=== PATIENT | female | born 1955 | race Caucasian/White ===

== ENCOUNTER 2018-05-26 17:02 | Emergency (ER) | payer BC ==
[2018-05-26 17:12] VITALS: BP 130/69
--- NOTE | 2018-05-26 17:24 | UC ---
Complaint Female HPI - HPI Summary HPI Summary: patient has had dysuria, increased frequency and hematuria. she denies any pain , fever, back aches - History Of Current Complaint Chief Complaint: UCGU Stated Complaint: URINARY COMPLAINT Time Seen by Provider: 05/26/18 17:14 Hx Obtained From: Patient ?: No Onset/Duration: Sudden Onset, Lasting Days Severity Initially: Mild Severity Currently: None Pain Intensity: 0 Aggravating Factor(s): Urination - Allergies/Home Medications Allergies/Adverse Reactions: Allergies Allergy/AdvReac Type Severity Reaction Status Date / Time Penicillins Allergy Unknown Verified 05/26/18 17:13 Reaction Details Home Medications: Home Medications Carboxymethylcellulose Sodium [Thera Tears] 1 each OP DAILY 05/26/18 [History Confirmed 05/26/18] Multivitamin [Multivitamins] 1 cap PO DAILY 05/26/18 [History Confirmed 05/26/18 ] Rosuvastatin Calcium 10 mg PO DAILY 05/26/18 [History Confirmed 05/26/18] PMH/Surg Hx/FS Hx/Imm Hx Previously Healthy: Yes - Surgical History Surgical History: None - Social History Alcohol Use: Rare Substance Use Type: None Smoking Status (MU): Never Smoked Tobacco Review of Systems All Other Systems Reviewed And Are Negative: Yes Constitutional: Positive: Negative Skin: Positive: Negative Eyes: Positive: Negative ENT: Positive: Negative Respiratory: Positive: Negative Cardiovascular: Positive: Negative Gastrointestinal: Positive: Negative Genitourinary: Positive: Hematuria, Frequency Motor: Positive: Negative Neurovascular: Positive: Negative Musculoskeletal: Positive: Negative Neurological: Positive: Negative Psychological: Positive: Negative Is Patient Immunocompromised?: No Physical Exam Triage Information Reviewed: Yes Appearance: Well-Appearing, No Pain Distress, Well-Nourished Vital Signs: Initial Vital Signs Temp 98.1 F 05/26/18 17:08 Pulse 70 05/26/18 17:08 Resp 16 05/26/18 17:08 BP 130/69 05/26/18 17:08 Pulse Ox 100 05/26/18 17:08 Vital Signs Reviewed: Yes Eye Exam: Normal ENT Exam: Normal Dental Exam: Normal Neck exam: Normal Neck: Positive: Supple, Nontender, No Lymphadenopathy Respiratory Exam: Normal Respiratory: Positive: Chest non-tender, Lungs clear, Normal breath sounds Cardiovascular Exam: Normal Cardiovascular: Positive: RRR, No Murmur, Pulses Normal Abdomen Description: Positive: Nontender, No Organomegaly, Soft, CVA Tenderness (R) - neg, CVA Tenderness (L) - neg Musculoskeletal Exam: Normal Neurological Exam: Normal Psychological Exam: Normal Skin Exam: Normal Complaint Female Dx - Course Course Of Treatment: hx obtained, exam performed ,meds reviewed, UA and urine culture was sent, advised follow up with her urologist Dr Benites. - Differential Dx/Diagnosis Differential Diagnosis/HQI/PQRI: Renal Colic, Urinary Tract Infection, Other - glomular nephritis Provider Diagnosis: Hematuria, gross Discharge - Sign-Out/Discharge Documenting (check all that apply): Patient Departure All imaging exams completed and their final reports reviewed: No Studies - Discharge Plan Condition: Stable Disposition: HOME Patient Education Materials: Hematuria (ED) Referrals: Bethanie Prince MD [Primary Care Provider] - Atilio Benites MD [Medical Doctor] - Additional Instructions: 1. increase fluid intake and rest 2. We have sent the urine to be cultured. 3 Follow up with the urologist as this is the second episode in the past few months. 4. if you develop any severe back pain or abdominal pain follow up in ER> - Billing Disposition and Condition Condition: STABLE Disposition: Home
== END 2018-05-26 17:50 | disposition home or self-care (01) ==
LOC: UCEAST 17:02
DX: R31.0 Gross hematuria (principal); R30.0 Dysuria; R35.0 Frequency of micturition; Z88.0 Allergy status to penicillin
CPT/HCPCS: 81003; 87086; 99201; G0463

== ENCOUNTER 2018-06-25 07:09 | Emergency (ER) | payer BC ==
[2018-06-25 08:25] LABS: Urine Appearance Clear; Urine Bacteria Absent (Absent); Urine Bilirubin Negative (Negative); Urine Blood 2+ (Negative); Urine Color Yellow; Urine Glucose Negative (Negative); Urine Ketones Negative (Negative); Urine Nitrite Negative (Negative); Urine Protein Negative (Negative); Urine Red Blood Cell 2+(6-10/hpf) (Absent); Urine Specific Gravity 1.013 (1.010-1.030); Urine Squamous Epithelial Cell Present (Absent); Urine Urobilinogen Negative (Negative); Urine White Blood Cell 2+(11-20/hpf) (Absent)
--- NOTE | 2018-06-25 08:59 | ED ---
GI/ HPI - HPI Summary HPI Summary: Patient is a 62-year-old female is with a recent history of gross hematuria presenting to the ED with symptoms of intermittent right flank pain and right suprapubic pain. She states this has been occurring since this morning, however on arrival to the ED, she states she is asymptomatic at this time. She was concerned as she had recently had a cystoscopy and an ultrasound of the kidneys. She endorses kidney stents to the left flank, however he sense of the right flank. she denies any fevers, sweats, chills but she denies any aleyda blood in the urine this morning. she endorses frequency, but denies any urgency. she does have a follow-up to dr. benites, urology tomorrow morning. she states she was concerned as she had had right flank pain and has never had this in the past. she denies any other symptoms at this time. - History of Current Complaint Chief Complaint: EDUrogenitalProblems Time Seen by Provider: 06/25/18 07:21 Stated Complaint: BLOOD IN URINE,CANT STOP URINATING/ABD PAIN PER PT Hx Obtained From: Patient Onset/Duration: Started Hours Ago Timing: Constant Severity: Mild Current Severity: None Pain Intensity: 3 Location of Pain: Flank - right Pain Characteristics: Aching Associated Signs and Symptoms: Positive: Negative, Flank Pain - right, UTI Symptoms. Negative: Hematemesis, Back Pain, Pallor, Dizziness Aggravating Factor(s): Nothing Alleviating Factor(s): Nothing - Allergy/Home Medications Allergies/Adverse Reactions: Allergies Allergy/AdvReac Type Severity Reaction Status Date / Time Penicillins Allergy Unknown Verified 06/25/18 07:14 Reaction Details PMH/Surg Hx/FS Hx/Imm Hx Previously Healthy: Yes - Cancer History Hx Chemotherapy: No Hx Radiation Therapy: No - Immunization History Hx Pertussis Vaccination: No Immunizations Up to Date: Yes Infectious Disease History: No Infectious Disease History: Reports: Hx Shingles - 2018 Denies: Traveled Outside the [place] in Last 30 Days - Social History Occupation: Employed Full-time Lives: With Family Alcohol Use: Rare Hx Substance Use: No Substance Use Type: Reports: None Hx Tobacco Use: No Smoking Status (MU): Never Smoked Tobacco Review of Systems Negative: Fever, Chills, Fatigue, Skin Diaphoresis Negative: Palpitations, Chest Pain Negative: Shortness Of Breath, Cough Gastrointestinal: Negative Negative: Abdominal Pain, Vomiting, Diarrhea, Nausea Positive: see HPI Negative: Arthralgia, Myalgia Neurological: Negative All Other Systems Reviewed And Are Negative: Yes Physical Exam Triage Information Reviewed: Yes Vital Signs On Initial Exam: Initial Vitals Temp Pulse Resp BP Pulse Ox 98.7 F 76 16 155/87 97 06/25/18 07:11 06/25/18 07:11 06/25/18 07:11 06/25/18 07:11 06/25/18 07:11 Vital Signs Reviewed: Yes Appearance: Positive: Well-Appearing, Well-Nourished Skin: Positive: Warm, Skin Color Reflects Adequate Perfusion Head/Face: Positive: Normal Head/Face Inspection Eyes: Positive: EOMI, ALONZO, Conjunctiva Clear Neck: Positive: Supple, No Lymphadenopathy Respiratory/Lung Sounds: Positive: Clear to Auscultation, Breath Sounds Present Cardiovascular: Positive: RRR, Pulses are Symmetrical in both Upper and Lower Extremities Abdomen Description: Positive: Other: - none at this time on exam Musculoskeletal: Positive: Normal, Strength/ROM Intact Neurological: Positive: Sensory/Motor Intact, Alert, Oriented to Person Place, Time Psychiatric: Positive: Normal, Affect/Mood Appropriate Diagnostics - Vital Signs Vital Signs Temp Pulse Resp BP Pulse Ox 06/25/18 07:11 98.7 F 76 16 155/87 97 - Laboratory Lab Results: Lab Results 06/25/18 Range/Units 07:55 Urine Color Yellow Urine Appearance Clear Urine pH 5.0 (5-9) Ur Specific [place] 1.013 (1.010-1.030) Urine Protein Negative (Negative) Urine Ketones Negative (Negative) Urine Blood 2+ A (Negative) Urine Nitrate Negative (Negative) Urine Bilirubin Negative (Negative) Urine Urobilinogen Negative (Negative) Ur Leukocyte Esterase Trace A (Negative) Urine WBC (Auto) 2+(11-20/hpf) A (Absent) Urine RBC (Auto) 2+(6-10/hpf) A (Absent) Ur Squamous Epith Cells Present A (Absent) Urine Bacteria Absent (Absent) Urine Glucose Negative (Negative) Lab Statement: Any lab studies that have been ordered have been reviewed, and results considered in the medical decision making process. GIGU Course/Dx - Course Course Of Treatment: During the course of treatment, the patient's evaluated for intermittent right flank pain and suprapubic tenderness with urinary frequency since having a cystoscopy. She states the worsening symptoms with this morning, and included the right flank pain for the first time. She has never had this in the past. She denies any history of UTI. She states she is otherwise healthy. She has a follow-up with Dr. Benites tomorrow. She states she has had kidney stones to the left flank, but recently had a ultrasound to the right flank with no evidence of kidney stones. UA obtained which shows 2+ blood and 2+ PVCs with trace leukocytes. This is positive for UTI. She will be treated for UTI with Bactrim twice daily 5 days. She will follow-up with Dr. Benites in the morning. I have opted not to complete a CT scan at this time as there was no evidence of kidney stones to the right flank which would be cause for concern of obstruction. Also patient is currently asymptomatic. She is afebrile. Vital signs are stable. - Diagnoses Differential Diagnoses - Female: Other - Right flank pain, UTI, bladder spasms, hematuria Provider Diagnoses: UTI (urinary tract infection) Discharge - Sign-Out/Discharge Documenting (check all that apply): Patient Departure Patient Received Moderate/Deep Sedation with Procedure: No - Discharge Plan Condition: Stable Disposition: HOME Prescriptions: Sulfamethox/Trimethoprim DS* [Bactrim DS 800/160 TAB*] 1 tab PO BID #10 tab MDD 2 Patient Education Materials: Urinary Tract Infection in Women (ED) Referrals: Bethanie Prince MD [Primary Care Provider] - Additional Instructions: As discussed, we will place him on an antibiotic at this time, however table any other treatments as you have an appointment tomorrow with Dr. Benites If he develop any worsening symptoms to the right flank or experiencing any urinary symptoms, return to the ED immediately Take the Bactrim twice daily 5 days or until we call you or Dr. Benites changes these medications. - Billing Disposition and Condition Condition: STABLE Disposition: Home
[2018-06-25 09:29] VITALS: BP 145/66
== END 2018-06-25 09:00 | disposition home or self-care (01) ==
LOC: ED 07:09
DX: N39.0 Urinary tract infection, site not specified (principal); Z88.0 Allergy status to penicillin
CPT/HCPCS: 81003; 81015; 87086; 99281

== ENCOUNTER → 2018-06-29 07:29 | Day surgery (SDC) | payer BC ==
--- NOTE | 2018-06-26 20:43 | HP ---
CC: Dr. Prince * HISTORY AND PHYSICAL: DATE OF PLANNED ADMISSION AND SURGERY: 06/29/18 HISTORY OF PRESENT ILLNESS: Mrs. Zapata is a 62-year-old white female who is admitted with a distal right ureteral calculus for cystoscopy, right ureteroscopy, laser lithotripsy and right ureteral stent insertion. Mrs. Zapata's symptoms started about 2-1/2 months ago when she presented to the emergency room at [facility] [place] with recurrent episodes of gross hematuria associated with mild Rt flank pain. In the emergency room, she had a urinalysis, which showed microhematuria, blood work was normal. She did not have any imaging of her kidneys. She did fine until about 6 weeks later when she had another similar episode that lasted 2 days. She was then seen in my office for evaluation. Urinalysis was positive for blood. Renal ultrasound was normal and cystoscopy was negative showing no suspicious bladder lesions. The patient was observed and she presented back with voiding symptoms consisting of urgency, frequency and suprapubic discomfort associated with mild right flank pain. She had a noncontrast CT of the abdomen and pelvis, which showed a 4 to 5 mm calculus in the distal right ureter associated with mild-to- moderate right hydroureteronephrosis. There was some edema of the ureteral wall adjacent to the stone. No other abnormalities were noted. Because of the duration of her symptoms and the above findings, the patient is admitted for the above procedure. Past history is otherwise completely negative. She had an occasional episode of cystitis in the past. She denies any past history of any renal diseases or calculi. [employer] history is relevant for 1 vaginal delivery. She has not had any pelvic surgeries. She is menopausal and is on no hormone replacement therapy. PAST MEDICAL HISTORY AND SYSTEM REVIEW: She is in very good health. Her only medication is rosuvastatin 10 mg daily for elevated lipids. She takes vitamin D and multivitamins. She is a nonsmoker. There is minimal alcohol intake. FAMILY HISTORY: Positive for renal calculus disease in the patient's mother and daughter. PHYSICAL EXAMINATION GENERAL: She is a pleasant and healthy-looking white female. VITAL SIGNS: Blood pressure 120/70, pulse of 66. LUNGS: Clear. HEART: Regular and rhythmic. No murmurs. ABDOMEN: Soft. No masses, no tenderness and minimal right CVA tenderness. IMPRESSION: Recurrent episodes of gross hematuria of 2-1/2 months' duration with irritative bladder symptoms, and a 4 to 5 mm calculus in the distal right ureter. PLAN: Considering the duration of her symptoms and the fact that the stone had not passed spontaneously in at least 2-1/2 months, the plan is for right ureteroscopy, laser lithotripsy, and right ureteral stent insertion. I discussed the above plan in detail with the patient. All her questions were answered. [id number] #: [id number] MARY
[~2018-06-29 07:29] MED LIST: Buffered Lidocaine 1% SYRIN* 1 ML/SYRINGE INTRADERM ONE; Dexamethasone IV* 4 MG/ML 1 ML (4 MG) ONE; EPHEDrine (Pressors)* 50 MG/ML VIAL ONE; Famotidine IV* 10 MG/ML 2 ML (20 mg) IV ONE; Famotidine IV* 10 MG/ML 2 ML (20 mg) ONE; Iohexol 180 (CONTRAST) 10 ML SDV IV ONE; Lactated Ringers 1000 ML Bag* 1,000 ML IV SCH; Lidocaine 2% PF * 5 ML VIAL ONE; Midazolam* 1 MG/ML 5 ML VIAL (5 MG) ONE; Naloxone* 0.4 MG/ML 1 ML VIAL IV PRN; Ondansetron INJ* 2 MG/ML VIAL IV PRN; Ondansetron INJ* 2 MG/ML VIAL ONE; Propofol* 10 MG/ML 20 ML BTL ONE; cefTRIAXone(*) 2 GM ADDV.VIAL IVPB ONE; fentaNYL* 50 MCG/ML 2 ML VIAL (100 MCG VIAL) IV PRN; fentaNYL* 50 MCG/ML 2 ML VIAL (100 MCG VIAL) ONE
[2018-06-29 12:29] VITALS: BP 114/61
--- NOTE | 2018-06-29 12:39 | OP ---
CC: Dr. Prince* OPERATIVE REPORT: DATE OF OPERATION: 06/29/18 - SDS DATE OF : 59 SURGEON: Atilio Benites MD ANESTHESIOLOGIST: Dr. Prasad Car. ANESTHESIA: General. PRE-OP DIAGNOSIS: Distal right ureteral calculus (5 mm). POST-OP DIAGNOSIS: Distal right ureteral calculus (5 mm). OPERATIVE PROCEDURE: 1. Cystoscopy. 2. Right ureteroscopy and extraction of right ureteral calculus. 3. Right retrograde pyelography and insertion of right ureteral stent (6-Sammarinese ). INDICATIONS: Ms. Zapata is a 62-year-old white female, who had 2-1/2-months' history of mild right flank pain, hematuria, and more recently irritative bladder symptoms. Noncontrast CT of the abdomen and pelvis showed a 5-mm calculus in the distal right ureter with edema of the adjacent ureteral mucosa and mild right hydronephrosis. Because of the above history and duration of symptoms, the above procedure was advised and accepted. PATHOLOGY AT CYSTOSCOPY: There was edema and hyperemia of the right ureteral orifice. The rest of the bladder wall looked normal and there were no suspicious lesions seen. Upon right ureteroscopy, a 5-mm calculus that had the gross appearance of calcium oxalate stone was noted. Retrograde pyelography showed mild right hydronephrosis. DESCRIPTION OF PROCEDURE: After successful general anesthesia, the patient was placed in the lithotomy position and was prepped and draped for a cystoscopy. Cystoscopy was performed. The bladder was carefully inspected and above findings were noted. A flexible tip guidewire was then introduced into the right orifice and positioned in the area of the renal pelvis. A size 6.5 semi-rigid tapered ureteroscope was then introduced inside the bladder. A flexible tip basket was introduced through the port of the ureteroscope and the flexible tip was introduced inside the right ureter alongside the right ureteral orifice. That allowed the atraumatic introduction of the ureteroscope inside the ureter. The calculus was identified. It was engaged in the basket and pulled out with minimal trauma to the ureter. Right retrograde pyelography was then performed. A size 6-Sammarinese stent was then placed with the proximal end coiling in the renal pelvis and distal end coiling inside the bladder. There was good drainage of contrast from the kidney and no extravasation. The patient tolerated the procedure well and left the operating room in good condition. The plan is to leave the stent in place for about 1 week. It will be removed in the office under local anesthesia. [id number] #: [id number] MARY
== END | disposition home or self-care (01) ==
LOC: OR 07:29
PROVIDERS: ATTEND Urology
DX: N13.2 Hydronephrosis with renal and ureteral calculous obstruction (principal); R31.0 Gross hematuria
CPT/HCPCS: 74420; 82365; 88300; C1876; J0696; J1100; J2250; J2405; J2704; J3010